=== PATIENT | male | born 1950 | race Caucasian/White ===

== ENCOUNTER → 2017-05-16 | Outpatient (CLI) | payer MEDICARE, BC, OTHER ==
[~2017-05-16] MED LIST: REGADENOSON 0.4 MG/5 ML SYRINGE IV ONE
--- NOTE | 2017-05-16 11:48 | EST ---
DATE OF SERVICE: 05/16/2017 AGE: 66Y SEX: M HT: 6')' WT: 250 lbs. Protocol Keyur: Other: Lexiscan Cardiolite Stage: Dur. of Exercise: *Heart Rate Blood Pressure *Rest: 51 Rest: 124/54 * *Max. Achieved: 63 Maximum BP: 134/78 85% PMHR: 132 100% PMHR: 155 *METS: INDICATIONS: MEDICATIONS: Aspirin, Lexapro, pravastatin. Lexiscan Cardiolite study was performed. Peak heart rate of 63 was achieved. Maximum blood pressure of 134/78 mmHg was noted. Resting EKG shows normal sinus rhythm with normal KS interval and QRS duration and normal ST-T waves. No ST segment depression suggestive of ischemia is noted. The results of the nuclear study will follow.
--- NOTE | 2017-05-16 12:20 | NM ---
EXAMINATION TYPE: NM stress lexiscan cardiolite DATE OF EXAM: 05/16/2017 COMPARISON: NONE HISTORY: Shortness of breath TECHNIQUE: After the intravenous administration of 10.65 mCi Tc 99m Sestamibi - Cardiolite resting S PECT images acquired 50 minutes post injection. The patient received 0.4mg Lexiscan, 27.5 mCi Tc 99m Sestamibi - Stress images obtained [address] injection FINDINGS: Review of stress and rest SPECT images demonstrates no distinct perfusion abnormality. Gated analysi s shows normal wall motion with an estimated left ventricular ejection fraction of 50 %. IMPRESSION: No scintigraphic evidence for reversible ischemia.
== END | disposition home or self-care (01) ==
LOC: RADNMMAIN 08:10
PROVIDERS: ATTEND Family Medicine
DX: T73.3XXA Exhaustion due to excessive exertion, initial encounter (principal); I10 Essential (primary) hypertension
CPT/HCPCS: 93017; 78452; A9500; J2785

== ENCOUNTER → 2022-05-29 | Outpatient (CLI) | payer MEDICARE, OTHER ==
[2022-05-29 11:16] VITALS: BP 148/65; PULSE 52; RESP 18
--- NOTE | 2022-05-29 11:40 | P.PAINPG ---
Objective - Vital Signs Vital signs: Vital Signs Temp Pulse 52 L 05/29/22 11:07 Resp 18 05/29/22 11:07 BP 148/65 05/29/22 11:07 Pulse Ox 96 05/29/22 11:07 FiO2 PQRS Measure Charge Sheet Mode of Arrival: Ambulatory Comment: HISTORY OF PRESENT ILLNESS: 71 yr old male as a referral from Dr Munoz presents today with severe and chronic LBP secondary disc bulges, DDD, anterolisthesis, neuroforaminal stenoses and facet arthropathy for evaluation. Pt states his pain is localized to the lower aspects of his lumbar spine with sharp/achy pain shooting towards the BL hips, 7/10 in intensity but escalates as high as 8/10 with twisting or lifting. He also complains of constant numbness of BL feet. He states he endured an injury 12 yrs ago while in the [employer]. Pain is provoked with movement. Pain is alleviated with medications (Naproxen OTC, Tylenol OTC), injections which provided no relief, repositioning, home based stretching regimen and rest. PMH: HTN, Hyperlipidemia, MDD PSH: Cervical spine surgery, R shoulder surgery, L TFESI 08/19/21 L5-S1 at Dr Munoz's office with 0% relief, Caudal ANKIT 09/04/21 w 0% relief. SH: Daily ETOH use, No tobacco use, No illicit drug use. and lives with spouse. [employer] . FH: Mother- CA/ . Father-ETOH abuse/ . Brother- DM. Brother- Asthma. All: NKDA Meds: See list REVIEW OF ORGAN SYSTEMS: CONSTITUTIONAL: No fevers or chills. No recent weight loss. NEUROLOGICAL: + numbness and tingling along the distal extremities. No seizure disorders or headaches. MUSCULOSKELETAL: + pain PSYCHIATRIC: Denies current depression or suicidal thoughts. Physical Examinations : Constitutional : Cooperative , not in acute distress . Neurologic : Cranial nerve II to XII intact. No focal neurological deficits. Psychiatric : alert & oriented x 3. Matching mood & appropriate affect. Judgment & insight intact. Musculoskeletal : Cervical Spine Motor strength in the deltoid and biceps: Normal right side. Normal Left side Motor strength biceps and the wrist extensors: Normal right side . Normal left side Motor strength in the triceps muscle: Normal right side. Normal left side Deep tendon reflexes: Normal at the biceps. Normal at Brachioradialis. Normal at triceps Vertebral body tenderness to deep palpation over Cervical facet loading test: positive bilaterally Spurling test: positive bilaterally Neck distraction test: positive bilaterally Rosa sign: positive bilaterally Lumbar spine Motor strength lower extremities ,thigh and legs 5/5 Right side , 5/5 Left side Deep tendon reflexes : Normal Knee Jerk. Normal Ankle Jerk Vertebral body tenderness over Lumbar facet Loading Test: positive Right / positive Left over L3-L4, L4-L5 w jump reflex Range of motion of the lumbar spine Flexion 30 degrees, extension 10 degrees Straight Leg Raise test: Left/ Right positive at degree Teofilo test: positive right / positive left. Severe tenderness over the Sacroiliac joint on the Right / Left sides Gaenslen test: positive bilaterally Seated flexion test: positive bilaterally. Sacral spine : Severe tenderness over the Sacroiliac joint: right side / left side Range of motion: Flexion of the lumbar spine <60 degrees Range of motion: Extension of the lumbar spine <20 degrees Gaenslen's Test positive Serg's Test positive Teofilo test: positive right side / left side Thigh Thrust Test Sacral Thrust Test Imaging: MRI without contrast of the lumbar spine from 07/25/21 reviewed Assessment/ Plan : Lumbar spondylosis, Lumbar stenosis Recommendation of L L3-L4, L4-L5 #1. May need a series of injections, up until RFA, for optimal pain relief. Risks, benefits of procedure discussed and patient verbalized understanding. Denies aspirin or anti- coagulant use or medical history of diabetes. Protocol for discontinuation/ continuation of medications jasmine procedure discussed. All questions answered. I have spent greater than 30 minutes on patient care today. Dr Jeong was available by phone for the evaluation of this patient. The time was used to review the medical records including relevant urine studies and Prescription history (MAPs), review of the available imaging, evaluation and examination of the patient, coordination of care with the medical staff and if applicable referring physicians, as well as creation of the medical record - Pain Location Lower Back Non-Pharmacological Interventions: Inactivity Pharmacological Interventions: Epidural, PRN Medication PQRS Narrative: Blood Pressure 148/65 Pain Intensity [Lower Back] 7 Scale Used Numeric (1 - 10) Hx Alcohol Use (MH) Yes: 3 BEERS A DAY AND A PINT OF LIQUOR ON THE WEEKENDS Home Medications: Ambulatory Orders Acetaminophen Tab [Tylenol Tab] 500 mg PO Q6H 05/29/22 Naproxen [Naprosyn] 500 mg PO Q8HR PRN 05/29/22 Controlled Substance Measures - Controlled Substance Measures Is patient prescribed a controlled substance at discharge?: No
== END ==
LOC: PNWHC3 10:12
PROVIDERS: ATTEND Specialist
DX: M47.816 Spondylosis without myelopathy or radiculopathy, lumbar region (principal); M48.061 Spinal stenosis, lumbar region without neurogenic claudication; I10 Essential (primary) hypertension; E78.5 Hyperlipidemia, unspecified
CPT/HCPCS: 99202; 99211

== ENCOUNTER 2022-07-05 11:32 | Day surgery (SDC) | payer MEDICARE, OTHER ==
[2022-07-03 12:57] VITALS: BMI 31.1
[~2022-07-05 11:32] MED LIST changes: +LACTATED RINGERS 1,000 ML IV SCH; +LIDOCAINE 1% (10MG/ML) FOR IV START INTRADERMA PRN; -REGADENOSON 0.4 MG/5 ML SYRINGE IV ONE
[2022-07-05] MEDS ORDERED: fentaNYL (PF) 50 MCG/ML 2 ML AMP ONE (12:23)
[2022-07-05] MEDS ORDERED: methylPREDNISolone ACETATE 40 MG/ML 1 ML VIAL ONE (12:23)
[2022-07-05] MEDS ORDERED: MIDAZOLAM 2 MG/2 ML VIAL ONE (12:23)
[2022-07-05] MEDS ORDERED: ROPIVACAINE 5MG/ML 20ML VIAL ONE (12:23)
--- NOTE | 2022-07-05 12:39 | P.PCN ---
Date of Procedure: 07/05/22 Procedure(s) Performed: PREOPERATIVE DIAGNOSIS : 1- Lumbar spondylosis with Facet Arthropathy without myelopathy . 2- Lumber degenerative disc disease POSTOPERATIVE DIAGNOSIS: 1- Lumbar spondylosis with Facet Arthropathy without myelopathy . 2- Lumber degenerative disc disease PROCEDURE: Diagnostic Left L3 , L4 , and L5 medial branch block under fluoroscopy guidance(fluoroscopy images available in the radiology Department ) ( To target the facet joint between left L4-5 , and L5-S1 ) ANESTHESIA:, Monitored anesthesia care as per anesthesia department. EBL: Minimal COMPLICATION: None PROCEDURE INDICATION: Chronic low back pain secondary to Facet arthropathy unresponsive to conservative treatment. PROCEDURE DESCRIPTION: the patient was seen and identified in the preop holding area , risks and benefits and possible complications of the procedure and alternative were discussed with the patient, and the patient agreed to proceed with the procedure and signed the consent and vital signs monitored during the procedure and fluoroscopy was used to maximize the benefit and accuracy of the needle placement, and sedation was given to decrease patient anxiety, patient was taken to the procedure room and placed in prone position vital signs monitored in the back prepped with chlorhexidine X3 then under strict sterile technique using a right oblique fluoroscopy ,the junction of the transverse process and the superior articulating process of the left L3 , L4 , and L5 vertebra which corresponding to the fluoroscopy image of the eye of the Tobias dog on the block side for the medial branches and subsequently , after local infiltration of skin and subcu tissuies with Ropivacaine 0.5 % , one mL at each level ,then 22-gauge Quincke-type needles , 3 needle was used , each one of them placed at the junction of the base of the transverse process and the superior articular process at the appropriate level, and the needle was advanced until the periosteum contacted, needle placement confirmed with AP oblique and lateral view and after appropriate needle placement confirmed, and after negative aspiration for heme and CSF and there was no paresthesia 1-1/2 mL of Ropivacaine 0.5% mixed with 40 mg Depo-Medrol , then half mL injected at each level after negative aspiration the needle subsequently removed . At the end of the procedure and the needles removed and a bandage applied after the skin was cleaned the cleaning solution patient taken to recovery room in stable condition and monitors in the recovery room for 20-30 minutes and discharged home in stable condition after discharge criteria met and patient will follow up with the pain clinic in 2-4 weeks
[2022-07-05] MEDS ORDERED: IV FLUID CONTINUATION 850 ML IV ONE (12:45)
--- NOTE | 2022-07-05 12:49 | FL ---
EXAMINATION TYPE: FL guided pain mgmt statistic DATE OF EXAM: 07/05/2022 CLINICAL HISTORY: Low back pain. TECHNIQUE: Fluoroscopy. COMPARISON: None. FINDINGS: Fluoroscopic guidance was provided during pain relief procedure performed by Dr. Jeong . A total of 4 seconds of fluoroscopic time was utilized during the procedure and two spot images ar e acquired. Images acquired shows needle localization at several levels in the lumbar spine. IMPRESSION: As Above.
[2022-07-05 12:58] VITALS: BP 114/74; PULSE 56; RESP 20
== END 2022-07-05 13:17 | disposition home or self-care (01) ==
LOC: ORPAIN 11:32
PROVIDERS: ATTEND Specialist
DX: M47.816 Spondylosis without myelopathy or radiculopathy, lumbar region (principal); M51.36 Other intervertebral disc degeneration, lumbar region; G89.29 Other chronic pain; I10 Essential (primary) hypertension; E78.5 Hyperlipidemia, unspecified; E07.9 Disorder of thyroid, unspecified
CPT/HCPCS: 64493; 64494; J2250; J1030; J3010; J2795

== ENCOUNTER → 2022-07-09 | Outpatient (CLI) | payer MEDICARE, OTHER ==
--- NOTE | 2022-07-09 13:51 | CTL ---
EXAMINATION TYPE: CT Low Dose Lung DATE OF EXAM ORDERED: 07/09/2022 HISTORY: 71-year-old male Z87.891, personal history of nicotine dependence, lung cancer screening SCREENING VISIT: Baseline COMPARISON: None TECHNIQUE: Low dose computed tomography scan was performed through the chest with coronal and sagitta l reconstructions. Automated exposure control for dose reduction was used. CT DIAGNOSTIC QUALITY: Satisfactory FINDINGS: Heart size with trace anterior pericardial fluid measuring 4 mm. Scattered LAD and RCA coronary calci fications are present. Mildly ectatic ascending aorta at 3.6 cm. Mild atherosclerotic arch calcifications with conventional arch vessel branching anatomy. No thoracic lymphadenopathy by CT size criteria. Mild centrilobular emphysema. Mild diffuse bronchial wall thickening. Some scattered strandy scarrin g or atelectasis is present in the lower lungs. Some volume loss, probable atelectasis inferior lingula. 5 mm right upper lobe pulmonary nodule, axial image 51. 5 mm subpleural pulmonary nodule lateral left apex, axial image 32. There is focal irregular opacity lateral left midlung, axial image 149 and 158 that has a somewhat ba ndlike configuration on the coronal series suggesting additional scarring or atelectasis. This can be reassessed at 6 months. Visualized upper abdomen shows no gross abnormality. Bones: Osteopenia. No osseous destructive process. IMPRESSION: 1. Lung RADS 3, probably benign, a couple 5 mm pulmonary nodules on baseline screening along with foc al irregular opacity lateral left midlung. This may reflect chronic scarring but stability should be demonstrated. Six-month follow-up low-dose CT chest to reassess. 2. COPD with mild emphysema. Recommend smoking cessation. CT LUNG RAD AND CT CHEST RECOMMENDATION: Lung-Rad 3 Probably Benign: 6 month follow-up LDCT. S Modifier (other clinically significant findings): None
== END | disposition home or self-care (01) ==
LOC: RADCTMAIN 11:02
PROVIDERS: ATTEND Family Medicine
DX: J43.9 Emphysema, unspecified (principal); R91.8 Other nonspecific abnormal finding of lung field
CPT/HCPCS: 71271

== ENCOUNTER 2022-08-09 12:24 | Day surgery (SDC) | payer MEDICARE, OTHER ==
[2022-08-09 12:42] VITALS: TEMP 97.2
[2022-08-09] MEDS ORDERED: LIDOCAINE 1% (10MG/ML) FOR IV START INTRADERMA ONE (12:42)
[2022-08-09] MEDS ORDERED: methylPREDNISolone ACETATE 40 MG/ML 1 ML VIAL ONE (12:58)
[2022-08-09] MEDS ORDERED: ROPIVACAINE 5MG/ML 20ML VIAL ONE (12:58)
[2022-08-09] MEDS ORDERED: MIDAZOLAM 2 MG/2 ML VIAL ONE (12:58)
[2022-08-09] MEDS ORDERED: fentaNYL (PF) 50 MCG/ML 2 ML AMP ONE (12:58)
--- NOTE | 2022-08-09 13:09 | P.PCN ---
Date of Procedure: 08/09/22 Procedure(s) Performed: PREOPERATIVE DIAGNOSIS : 1- Lumbar spondylosis with Facet Arthropathy without myelopathy . 2- Lumber degenerative disc disease POSTOPERATIVE DIAGNOSIS: 1- Lumbar spondylosis with Facet Arthropathy without myelopathy . 2- Lumber degenerative disc disease PROCEDURE: Diagnostic Left L3 , L4 , and L5 medial branch block under fluoroscopy guidance(fluoroscopy images available in the radiology Department ) ( To target the facet joint between left L4-5 , and L5-S1 )# 2nd ANESTHESIA:, Monitored anesthesia care as per anesthesia department. EBL: Minimal COMPLICATION: None PROCEDURE INDICATION: Chronic low back pain secondary to Facet arthropathy unresponsive to conservative treatment. PROCEDURE DESCRIPTION: the patient was seen and identified in the preop holding area , risks and benefits and possible complications of the procedure and alternative were discussed with the patient, and the patient agreed to proceed with the procedure and signed the consent and vital signs monitored during the procedure and fluoroscopy was used to maximize the benefit and accuracy of the needle placement, and sedation was given to decrease patient anxiety, patient was taken to the procedure room and placed in prone position vital signs monitored in the back prepped with chlorhexidine X3 then under strict sterile technique using a right oblique fluoroscopy ,the junction of the transverse process and the superior articulating process of the left L3 , L4 , and L5 vertebra which corresponding to the fluoroscopy image of the eye of the Tobias dog on the block side for the medial branches and subsequently , after local infiltration of skin and subcu tissuies with Ropivacaine 0.5 % , one mL at each level ,then 22-gauge Quincke-type needles , 3 needle was used , each one of them placed at the junction of the base of the transverse process and the superior articular process at the appropriate level, and the needle was advanced until the periosteum contacted, needle placement confirmed with AP oblique and lateral view and after appropriate needle placement confirmed, and after negative aspiration for heme and CSF and there was no paresthesia 1-1/2 mL of Ropivacaine 0.5% mixed with 40 mg Depo-Medrol , then half mL injected at each level after negative aspiration the needle subsequently removed . At the end of the procedure and the needles removed and a bandage applied after the skin was cleaned the cleaning solution patient taken to recovery room in stable condition and monitors in the recovery room for 20-30 minutes and discharged home in stable condition after discharge criteria met and patient will follow up with the pain clinic in 2-4 weeks
[2022-08-09] MEDS ORDERED: IV FLUID CONTINUATION 700 ML IV ONE (13:12)
[2022-08-09 13:26] VITALS: BP 112/71; PULSE 56; RESP 16
--- NOTE | 2022-08-09 18:07 | FL ---
EXAMINATION TYPE: FL guided pain mgmt statistic DATE OF EXAM: 08/09/2022 FLUOROSCOPY Fluoroscopy time of 10 seconds was used during left-sided lumbar facet block for pain. 2 image/s doc ument/s the procedure.
== END 2022-08-09 13:45 | disposition home or self-care (01) ==
LOC: ORPAIN 12:24
PROVIDERS: ATTEND Specialist
DX: M47.816 Spondylosis without myelopathy or radiculopathy, lumbar region (principal); M51.36 Other intervertebral disc degeneration, lumbar region; G89.29 Other chronic pain; I10 Essential (primary) hypertension; E78.5 Hyperlipidemia, unspecified; E03.9 Hypothyroidism, unspecified; Z87.891 Personal history of nicotine dependence; Z79.899 Other long term (current) drug therapy
CPT/HCPCS: 64493; 64494; J2250; J1030; J3010; J2795

== ENCOUNTER → 2022-09-02 | Outpatient (CLI) | payer MEDICARE, OTHER ==
[2022-09-02 13:00] VITALS: BP 146/82; PULSE 63; RESP 18; TEMP 98.3
--- NOTE | 2022-09-02 15:42 | P.PAINPG ---
PQRS Measure Charge Sheet Comment: A 71 yr old male with a history of severe and chronic low back pain secondary to lumbar degenerative disc diseases and lumbar spondylosis with facet arthropathy without myelopathy presents today for evaluation s/p L L4-L5, L5-S1 #2. Pt states he experienced 0% pain relief s/p procedure. Pain level is curren tly at 5/10 in intensity, constant, L localized in lower lumbar spine, sore in character w shooting towards the L paraspinal muscles and L buttock. Pain is provoked by sitting or staying in one position for periods of 1 hr or more. Pain is alleviated with heat, laying supine, walking, repositioning and rest. Interventional pain procedures completed include L MBB L3-L5 x2. Patient is currently on DENIES Patient denies any side effects of the medication(s), denies excessive drowsiness or sleepiness, denies suicidal ideation and reports that the current pain medication is helping to control the pain and improve activities of daily living. Patient denies any motor or sensory deficits. Patient denies any fever or night sweats, denies any change in the bowel movements or urination. Physical Examination: -Constitutional: Cooperative. Not in acute distress . - Neurologic: Cranial nerve II to XII intact. No focal neurological deficits. - Psychatric: Alert & oriented x 3. Matching mood & appropriate affect. Judgment and insight intact. - Musculoskeletal: Cervical spine: Muscle bulk/ tone/ strength in the bilateral upper extremities normal Vertebral body tenderness to palpation over Spurling test positive Distraction test positive Facet loading test positive Thoracic spine Muscle bulk / tone/ strength in the bilateral paraspinal muscles normal Vertebral body tender to palpation over Facet loading test positive Lumbar spine: Motor bulk/ tone/ strength lower extremities , thigh and legs : 5/5 Deep tendon reflexes : Normal Knee Jerk. Normal Ankle Jerk . Vertebral body tenderness to palpation over L L3-L5 paraspinal TTP/ palpable spasms Lumbar Facet Loading Test positive Straight Leg Raise: positive at 30 degrees right side/ left side Gaenslen's Test positive Sacral spine : Severe tenderness over the Sacroiliac joint: right side / left side Range of motion: Flexion of the lumbar spine <60 degrees Range of motion: Extension of the lumbar spine <20 degrees Gaenslen's Test positive Serg's Test positive Teofilo test: positive right side / left side Thigh Thrust Test Sacral Thrust Test Assessment and plan: Chronic low back pain secondary to lumbar degenerative disc disease , lum bar spondylosis with facet arthropathy without myelopathy Recommendation of L TPIs of L2-S1. May need a series, up to every 2-3 mo, for optimal pain relief. Risks, benefits of procedure discussed and pt verbalized understanding. Denies anticoagulant use or medical history of diabetes. All patient questions answered I have spent less than 30 minutes on patient care today. Dr Jeong was available by phone for the evaluation of this patient. The time was used to review the medical records including relevant urine studies and Prescription history (MAPs), review of the available imaging, evaluation and examination of the patient, coordination of care with the medical staff and if applicable referring physicians, as well as creation of the medical record - Pain Location Left Lower Back Non-Pharmacological Interventions: Heat, Inactivity, Position/Reposition Pharmacological Interventions: Block PQRS Narrative: Hx Alcohol Use (MH) Yes: 3 BEERS A DAY AND A PINT OF LIQUOR ON THE WEEKENDS Home Medications: Ambulatory Orders Escitalopram Oxalate [Lexapro] 20 mg PO DAILY 07/03/22 Levothyroxine Sodium [Levoxyl] 200 mcg PO DAILY 07/03/22 Multivitamins, Thera [Multivitamin (formulary)] 1 tab PO DAILY 07/03/22 Pravastatin Sodium [Pravachol] 10 mg PO DAILY 07/03/22 Vitamin D. 500 mg PO DAILY 07/03/22 amLODIPine [Norvasc] 10 mg PO DAILY 07/03/22 EPINEPHrine (Auto Inject) [Epipen] 1 injection SQ ONCE PRN 08/08/22 Controlled Substance Measures - Controlled Substance Measures Is patient prescribed a controlled substance at discharge?: No
== END | disposition home or self-care (01) ==
LOC: PNWHC3 12:31
PROVIDERS: ATTEND Specialist
DX: M51.36 Other intervertebral disc degeneration, lumbar region (principal); M47.896 Other spondylosis, lumbar region; M46.96 Unspecified inflammatory spondylopathy, lumbar region
CPT/HCPCS: 99211

== ENCOUNTER 2022-09-24 08:43 | Day surgery (SDC) | payer MEDICARE, OTHER ==
[2022-09-24 09:15] VITALS: RESP 16; TEMP 97.3
[2022-09-24] MEDS ORDERED: LACTATED RINGERS 1,000 ML IV SCH (09:45)
[2022-09-24] MEDS ORDERED: fentaNYL (PF) 50 MCG/ML 2 ML AMP ONE (09:51)
[2022-09-24] MEDS ORDERED: MIDAZOLAM 2 MG/2 ML VIAL ONE (09:51)
[2022-09-24] MEDS ORDERED: ROPIVACAINE 5 MG/ML 20 ML AMPULE ONE (09:51)
[2022-09-24] MEDS ORDERED: TRIAMCINOLONE ACETONIDE 40 MG/ML 1 ML VIAL ONE (09:51)
--- NOTE | 2022-09-24 10:02 | P.PCN ---
Date of Procedure: 09/24/22 Description of Procedure: Pre and postop diagnosis: Myofascial pain syndrome Procedure: Left side lumbar Trigger point injections X 3 Muscle group X2 [left side paraspinal, and left side iliocostalis lumborum] Surgeon: Marivel Cope Anesthesia: Versed 1 mg, and fentanyl 50 g Sedation supervision start time: 951 Sedation supervision ended time: 957 Complications: None Estimated blood loss: None Specimen removed: None Procedure indications: Patient had a history of myofascial pain syndrome. Patient tried conservative therapy. Came here for intervention procedure for better pain relief. Procedure description: Patient was seen and identified in the holding area risk benefits competitions alternative discussed with the patient. Patient agreed to proceed for the procedure signed the consent. Patient taken to the procedure area. Timeout was completed. A total number of 3 - trigger point area was marked with a sterile marker. After ChloraPrep used to clean the area. Critical pause was taken. Using 25-gauge 1-1/[address] half way. Needle entered in each market site 3 mL of block solution injected at each level. The block solution containing 8 ml of 0.5% preservative-free ropivacaine with Kenlog 40 MG. Needle removed intact skin cleaned and Band-Aid applied. Patient tolerated the procedure well. Disposition: Patient discharge home after meeting the discharge criteria from the recovery. Patient scheduled to follow up with the pain clinic in 4 weeks for follow-up visit.
[2022-09-24] MEDS ORDERED: IV FLUID CONTINUATION 1,000 ML IV ONE ×2 (10:04)
[2022-09-24 10:24] VITALS: BP 126/74; PULSE 60
== END 2022-09-24 10:42 | disposition home or self-care (01) ==
LOC: ORPAIN 08:43
DX: M79.18 Myalgia, other site (principal); I10 Essential (primary) hypertension; G62.9 Polyneuropathy, unspecified; E78.00 Pure hypercholesterolemia, unspecified; M19.90 Unspecified osteoarthritis, unspecified site
CPT/HCPCS: 20553; J2250; J3301; J3010; J2795

== ENCOUNTER → 2023-04-14 | Outpatient (CLI) | payer MEDICARE, OTHER ==
--- NOTE | 2023-04-14 11:51 | CTL ---
EXAMINATION TYPE: CT Low Dose Lung DATE OF EXAM ORDERED: 04/14/2023 HISTORY: . Lung cancer screening CT DLP: 97.[address] CTDI: 2.6 mGy Automated exposure control for dose reduction was used. SCREENING VISIT: COMPARISON: 07/09/2022 TECHNIQUE: Low dose computed tomography scan was performed through the chest at 1 mm thick sections a nd reconstructed images in multiple planes at 1 mm and [address] DIAGNOSTIC QUALITY: Satisfactory FINDINGS: Heart size with trace anterior pericardial fluid measuring 4 mm. Scattered LAD and RCA coronary calci fications are present. Mildly ectatic ascending aorta at 3.6 cm. Mild atherosclerotic arch calcifications with conventional arch vessel branching anatomy. No thoracic lymphadenopathy by CT size criteria. Calcification in the right hilum represents chronic granulomatous disease. Mild centrilobular emphysema. Mild diffuse bronchial wall thickening. Some scattered strandy scarring or atelectasis is present in the lower lungs. Some volume loss, probable atelectasis inferior lingul a. 5 mm right upper lobe pulmonary nodule, axial image 56 is stable. 5 mm subpleural pulmonary nodule lateral left apex, axial image 41 is stable. There is focal irregular opacity lateral left midlung, there is more vague in appearance in today's e xam likely representing chronic atelectasis. Chronic pneumonitis also suspected. Visualized upper abdomen shows no gross abnormality. Bones: Osteopenia. No osseous destructive process. IMPRESSION: 1. Stable 5 mm or less biapical pulmonary nodules which have a benign appearance. 2. Dense coronary artery calcification. 3. COPD 4. Previously noted bandlike density in the left upper lobe persists on today's exam likely represent ing chronic atelectasis, scarring or less likely pneumonitis. Correlate clinically CT LUNG RAD AND CT CHEST RECOMMENDATION: Lung-Rad 2 Benign Appearance or Behavior: Continue annual sc reening with LDCT in 12 months.
== END | disposition home or self-care (01) ==
LOC: RADCTMAIN 10:55
PROVIDERS: ATTEND Family Medicine
DX: Z12.2 Encounter for screening for malignant neoplasm of respiratory organs (principal); J44.9 Chronic obstructive pulmonary disease, unspecified; I25.10 Atherosclerotic heart disease of native coronary artery without angina pectoris; J98.4 Other disorders of lung; R91.8 Other nonspecific abnormal finding of lung field; Z87.891 Personal history of nicotine dependence
CPT/HCPCS: 71271

== ENCOUNTER → 2024-06-15 | Outpatient (CLI) | payer MEDICARE, OTHER ==
--- NOTE | 2024-06-15 11:25 | CTL ---
EXAMINATION TYPE: CT Low Dose Lung DATE OF EXAM ORDERED: 06/15/2024 HISTORY: Personal history of nicotine dependence, former smoker, 1.5 packs per day for 51 years. Lung cancer screening CT DLP: 128.[address] CTDI: 3.1 mGy Automated exposure control for dose reduction was used. SCREENING VISIT: Follow-up COMPARISON: CT Low Dose Lung cancer screening 04/14/2023, 07/09/2022 TECHNIQUE: Low dose computed tomography scan was performed through the chest at 1 mm thick sections a nd reconstructed images in multiple planes at 1 mm and [address] DIAGNOSTIC QUALITY: Satisfactory FINDINGS: Nodules: Stable peripheral right upper lobe 2.8 mm pulmonary nodule (series 4, image 121). Stable peripheral r ight upper lobe 2.3 mm pulmonary nodule (series 4, image 117). Additional previously seen pulmonary n odules are not well appreciated on today's exam. LUNGS: COPD: Severity: Minimal Fibrosis: Severity: None Lymph nodes: None Other findings: Linear scarring and/or atelectasis within the bilateral midlung. RIGHT PLEURAL SPACE: Effusion: None Calcification: None Thickening: None Pneumothorax: None LEFT PLEURAL SPACE: Effusion: None Calcification: None Thickening: None Pneumothorax: None HEART: Heart Size: Normal Coronary Calcification: Mild to moderate Pericardial Effusion: None OTHER FINDINGS: Upper abdomen: None Bony thorax: No acute processes. Mild degenerative disc disease. Partial visualization of anterior ce rvical fusion hardware. Supraclavicular region: None Other: None IMPRESSION: Stable pulmonary nodules measuring less than 3 mm. No new or enlarging pulmonary nodules. CT LUNG RAD AND CT CHEST RECOMMENDATION: Lung-Rad 2 Benign Appearance or Behavior: Continue annual sc reening with LDCT in 12 months. S Modifier (other clinically significant findings): None
== END | disposition home or self-care (01) ==
LOC: RADCTMAIN 10:49
PROVIDERS: ATTEND Family Medicine
DX: Z12.2 Encounter for screening for malignant neoplasm of respiratory organs (principal); R91.8 Other nonspecific abnormal finding of lung field; Z87.891 Personal history of nicotine dependence
CPT/HCPCS: 71271

== ENCOUNTER → 2024-07-12 | Outpatient (CLI) | payer MEDICARE, OTHER ==
--- NOTE | 2024-08-16 14:41 | XR ---
Site ID [facility] Gallego Richard ID [id number] 1950 Age/Gender: 73Y, M Order # N/A Procedure XR Chest 2 Views Date 07/12/2024 7:44:00 AM EXAMINATION TYPE: XR chest 2V DATE OF EXAM: 07/22/2024 1:08 PM COMPARISON: None TECHNIQUE: XR chest 2V Frontal and lateral views of the chest. CLINICAL INDICATION: Male, 73 year old with history of preop; FINDINGS: Lungs/Pleura: There is no evidence of pleural effusion, focal consolidation, or pneumothorax. Pulmonary vascularity: Unremarkable. Heart/mediastinum: Cardiomediastinal silhouette is unremarkable. Musculoskeletal: No acute osseous pathology. Partial visualization of cervical fusion hardware. Mild multilevel degenerative disc disease. IMPRESSION: No acute cardiopulmonary disease/process.
== END | disposition home or self-care (01) ==
LOC: LABPRL 12:34
PROVIDERS: ATTEND Orthopaedic Surgery Orthopaedic Surgery of the Spine
CPT/HCPCS: 71046; 87070

== ENCOUNTER 2024-07-21 12:34 | Observation (INO) | payer MEDICARE, OTHER ==
[~2024-07-21 12:34] MED LIST changes: +DEXAMETHASONE SOD PHOSPHATE 4 MG/ML 1 ML VIAL ONE; +GLYCOPYRROLATE 0.2 MG/ML 2 ML VIAL ONE; +HYDROmorphone (PF) 1 MG/ML ONE; +HYDROmorphone 0.5 MG/0.5 ML SYRINGE ONE; +LACTATED RINGERS 1,000 ML BAG ONE; -LACTATED RINGERS 1,000 ML IV SCH; -LIDOCAINE 1% (10MG/ML) FOR IV START INTRADERMA PRN; +LIDOCAINE 1% INJ 10MG/ML (20 ML MDV) ONE; +MIDAZOLAM 2 MG/2 ML VIAL ONE; +NEOSTIGMINE 1 MG/ML 10 ML VIAL ONE; +ONDANSETRON 4 MG/2 ML VIAL ONE; +PHENYLEPHRINE-0.9% NACL SYG 1,000 MCG/10 ML SYRINGE ONE; +PROPOFOL 10 MG/ML 20 ML VIAL IV ONE; +ROCURONIUM 10 MG/ML (5 ML VIAL) IV ONE; +SODIUM CHLORIDE 0.9% 1,000 ML BAG ONE; +SUCCINYLCHOLINE CHLORIDE 200 MG/10 ML VIAL IV ONE; +THROMBIN (BOVINE) 5,000 UNIT VIAL ONE; +ceFAZolin 1,000 MG VIAL ONE; +ePHEDrine 50 MG/ML 1 ML VIAL ONE; +fentaNYL (PF) 50 MCG/ML 2 ML AMP ONE
[2024-07-21] MEDS ORDERED: HYDROmorphone 0.5 MG/0.5 ML SYRINGE ONE ×2 (22:38)
[2024-07-21] MEDS ORDERED: HYDROcodone/APAP 5-325MG 1 EACH TAB ONE ×2 (22:44)
[2024-07-21] MEDS ORDERED: ceFAZolin 1,000 MG VIAL ONE (23:59)
[2024-07-21] MEDS ORDERED: D5-0.45% NACL WITH KCL 20MEQ/L 1,000 ML BAG IV ONE (23:59)
[2024-07-21] MEDS ORDERED: SODIUM CHLORIDE 0.9% 50 ML BAG ONE (23:59)
[2024-07-22] MEDS ORDERED: HYDROcodone/APAP 5-325MG 1 EACH TAB ONE ×2 (05:30)
[2024-07-22] MEDS ORDERED: DOCUSATE 100 MG CAP ONE ×4 (09:20→09:24)
--- NOTE | 2024-07-23 15:57 | OP ---
OPERATIVE REPORT DATE OF SERVICE : 07/21/2024 PREOPERATIVE DIAGNOSES: 1. Cervical myelopathy. 2. Severe cervical stenosis, C3-4, C6-7. 3. Prior anterior cervical decompression fusion C4-5, C5-6, with retained hardware. 4. Upper extremity radiculopathy. 5. Upper extremity weakness. 6. Lower extremity weakness. 7. Neck pain. POSTOPERATIVE DIAGNOSES: 1. Cervical myelopathy. 2. Severe cervical stenosis, C3-4, C6-7. 3. Prior anterior cervical decompression fusion C4-5, C5-6, with retained hardware. 4. Upper extremity radiculopathy. 5. Upper extremity weakness. 6. Lower extremity weakness. 7. Neck pain. PROCEDURES PERFORMED: 1. Removal of hardware C4-5, C5-6. 2. Exploration of fusion, C4-5, C5-6 with findings of solid fusion. 3. Anterior cervical decompression with diskectomy and fusion C3-4, C6-7. 4. Placement of interbody allograft bone graft, C3-4, C6-7. 5. Application of anterior cervical plate C3, 4, 5, 6, 7. FURNITURE ASSEMBLER AND INSTALLER: Giovanny Abdi, who was present throughout the entirety of the case for assistance during positioning, dissection, exposure, visualization, decompression, diskectomy and placement of hardware and closure. COMPLICATIONS: None apparent. ESTIMATED BLOOD LOSS: Approximately 100 mL. COMPONENTS REMOVED: Anterior cervical plate with screws, examined and found to be in total. IMPLANTS: K2M Malachi Chloride anterior cervical plate system with 6 screws and VIKOS interbody allograft bone graft with 1 mL of DBX bone putty. DISPOSITION: To recovery room in good stable condition. OPERATIVE INDICATIONS: The patient is a 73-year-old male who has been having significant issues at his neck and his upper extremities and difficulties with his balance and strength in his bilateral upper extremities. The patient had issues in the past over 11 years ago with this and underwent anterior cervical decompression, diskectomy and fusion. He did not have full relief of his symptoms at that point. Over the past year, he has been having worsening symptoms, which have been progressive over the past month to where he was dragging his feet and experiencing weakness in his upper extremities and difficulties with his balance. He was evaluated and found to have evidence of severe cervical stenosis above and below his prior fusion at the C3-4 and C6-7. He had evidence of cervical myelopathy and myelomalacia. He had been through conservative treatment, but had not had any relief despite this. We discussed different treatment options including possible need for surgery. Discussed the risks and complications of surgery including, but not limited to the risk of bleeding, risk of infection, risk of need for further surgery, risk of decreased loss of motion, loss of function, malunion, nonunion, hardware failure, nerve damage, paralysis, dysphagia, hoarseness, as well as the fact that surgery may not alleviate his symptoms were explained. Patient elected to proceed with surgical intervention and signed informed consent. DESCRIPTION OF PROCEDURE: After obtaining informed consent, evaluation by Anesthesia, preoperative medical evaluation and clearance, patient was identified in the preoperative holding area and the surgical site was marked. He was given prophylactic IV antibiotics brought to the operating room where he was transferred to the operating room table in supine position, being careful to pad any bony prominences and pressure points. Once he was well positioned, he was sedated and intubated by Anesthesia, keeping his neck in good neutral alignment and position and done in a safe and sterile manner. Once the airway was secured, his arms were padded, tucked to the side and his neck was prepped and draped in normal standard fashion. Appropriate keystone protocol, appropriate time-out was completed, and we proceeded with surgery. Local wound area was infiltrated with anesthesia and incision was made sharply through skin, subcutaneous tissue longitudinally at the anterior border of sternocleidomastoid. He had a prior surgery with prior incision at the lateral border of sternocleidomastoid and appropriate bridge at the new incision. I was able to dissect down with a carotid approach with the trachea and esophagus medially and carotid sheath laterally down to the anterior surface of the vertebral body. I was able to identify and expose the prior plate as well as the discs above and below. Intraoperative x-ray was completed and it showed the appropriate levels and I was able to then work to remove the plate. The screws x4 and the plate was removed and examined and found to be in total. I was able to evaluate the fusion and had good solid fusion at C4-5 and C5-6 without any evidence of instability. There was severe degeneration osteophytic spurring at C3-4 and C6-7, I was able to proceed, then with removal of osteophytes and the diskectomy, this was done similar at each level starting at C3-4 and then moved in C6-7. I used an 11 blade scalpel to establish annulotomy and diskectomy was performed with a combination of pituitary rongeurs, curettes, high-speed bur, and a blunt nerve hook. Note was made of significant disc degeneration and disc protrusion with stenosis centrally. The posterior longitudinal ligament and any extruded disc was removed, which gave excellent central bilateral foraminal decompression. There was no evidence of any dural tear or leak. Good hemostasis was maintained. The wound was copiously irrigated and suction dried as it had been done. I then prepared for the endplates in a good parallel fashion, removed osteophytes and prepared a graft and then placed the graft in good alignment good position with anterior border flush to the anterior surface of the vertebral bodies. This was done first at C3-4 and then C6-7 similarly. With this accomplished and good decompression accomplished, I was then able to prepare for a plate. I was able to choose a single plate expanding from C3-C7. It was held in the midline and using a drill guide and hand drill, I was able to drill holes at C3 x2, C7 x2 and C6 x2. All the screws were seated well and good position and locked appropriately. This construct was checked, found to have excellent stability. Intraoperative x-ray was again taken, which showed excellent position of the hardware at the appropriate level. The wound was copiously irrigated and suctioned dry. We prepared for closure. We had good hemostasis. No evidence of any dural tear or leak. The platysmal layer was closed with 3-0 Vicryl. Subcutaneous tissue was closed with 3- 0 Vicryl. Subcuticular tissue closed with 4-0 Vicryl and the wound was exteriorly closed with glue. The wound was cleaned and dressed and a soft collar was placed. The patient was woken up by anesthesia. Drapes were broken down. He was extubated and he was transferred back to his stretcher and brought to recovery room in good and stable condition. He will be admitted overnight for pain control, DVT prophylaxis, medical management, antibiotics. We will continue to follow him closely throughout his postoperative course. MMODL / IJN: [id number] /
--- NOTE | 2024-07-23 15:58 | DS ---
DISCHARGE SUMMARY HISTORY OF PRESENT ILLNESS: The patient was seen and examined at the bedside. He is very happy with his result in his upper extremity. He feels like his extremities have improved already. He feels like his balance and ambulation has already improved. His neck is sore, but it is manageable for him. He has been able to swallow and eat his regular breakfast. He has been up and about in his room. He says he is voiding much better this morning. He denies any new complaints. He denies any fevers or chills. PHYSICAL EXAMINATION: VITAL SIGNS: Afebrile. Stable vital signs. NECK: His neck incision site is clean, dry, and intact. There is no erythema. There is no drainage. There is no significant swelling. It is soft and supple. EXTREMITIES: On his upper extremities, he has good motion in his bilateral upper extremities. He feels he has better strength in his upper extremities. His calf is soft, nontender. He has sustained dorsiflexion, plantar flexion, EHL. HOSPITAL COURSE: The patient was admitted postoperatively status post anterior cervical decompression with diskectomy and fusion at C3-4 and C6-7 for his cervical myelopathy with severe cervical stenosis and upper and lower extremity weakness. He had retained hardware at C4, C5, and C6 which was removed at surgery as well. Postoperatively, the patient seems to be doing well. He has completed his prophylactic antibiotics without any signs or symptoms of infection. His neck incision site is doing well. He feels his symptoms are improved in his upper and lower extremities. He is mobile and tolerating his regular diet. He initially had some difficulties with voiding and had to be straight cathed overnight. However, he feels he is making some improvement, but does state that he has significant frequency with urination at home. He says he has not been on Flomax in the past and would consider starting this. We will go ahead and start him on Flomax to be continued to be managed with his primary care physician. Otherwise, he will continue with his postoperative management and recovery as he continues to ambulate. He can take pain medication, which we will prescribe him Haviland 5 mg 1 tablets p.o. q. 4 p.r.n. pain. He should avoid any heavy lifting or have rigorous activity. He should avoid any overhead activity. He may walk to tolerance. He should wear his cervical collar for comfort. If he has any troubles, he is instructed to call our office. Otherwise, he should follow up with us in 2 weeks' time as scheduled. I discussed this with him. I answered his questions to the best of my ability and he is agreeable to plan. KOSTA / BOBO: [id number] /
--- NOTE | 2024-08-16 12:44 | XR ---
Tk Enamorado ID: [id number] : 1950 EXAMINATION TYPE: XR cervical spine 1V DATE OF EXAM: 07/21/2024 Comparison: None Clinical History: 73-year-old male needle placement Findings: Crosstable lateral intraoperative view shows patient intubated an existing C4-C6 ACDF. Surgical needl e has been placed from an anterior approach at the anterior C3-C4 disc interspace. Impression: Needle at the C3-C4 anterior disc interspace. Previous C4-C6 ACDF.
--- NOTE | 2024-08-17 17:01 | XR ---
EXAMINATION TYPE: XR cervical spine 1V DATE OF EXAM: 07/21/2024 Comparison: Earlier today Clinical History: 73-year-old male hardware placement Findings: Crosstable lateral intraoperative view with the patient intubated. Interval extension of the patient' s previous ACDF now to include C3-C6 levels. Impression: Intraoperative radiograph as above, placement of C3-C6 ACDF. [facility], , 08/17/2024 4:58 PM
== END 2024-07-22 12:00 | disposition home or self-care (01) ==
LOC: OR 12:34 → INTOOBSV 12:41 → DISRECOVER 12:41 → UNDOADMIN 13:34 → DISRECOVER 13:34 → UNDODISIN 07-22 12:23
PROVIDERS: ADMIT Orthopaedic Surgery Orthopaedic Surgery of the Spine; ATTEND Orthopaedic Surgery Orthopaedic Surgery of the Spine
DX: M48.02 Spinal stenosis, cervical region (principal); M50.023 Cervical disc disorder at C6-C7 level with myelopathy; M50.123 Cervical disc disorder at C6-C7 level with radiculopathy; M50.01 Cervical disc disorder with myelopathy, high cervical region; M50.11 Cervical disc disorder with radiculopathy, high cervical region; M25.78 Osteophyte, vertebrae; I10 Essential (primary) hypertension; E78.5 Hyperlipidemia, unspecified; E03.9 Hypothyroidism, unspecified; F32.A Depression, unspecified; Z98.1 Arthrodesis status; Z87.891 Personal history of nicotine dependence; Z79.899 Other long term (current) drug therapy; Z79.890 Hormone replacement therapy
CPT/HCPCS: 22551; 22552; 22846; 20930; 86900; 86901; 86850; 72020; G0378 ×2; C1713 ×2; C1762 ×2; J2250; J0330; J1100; J2710; J2405; J0690; J2001; J3010; J1170 ×2; J2704; J2371; J1596